=== PATIENT | male | born 1945 | race Caucasian/White ===

== ENCOUNTER 2023-03-09 11:08 | Outpatient (AMB) | payer MEDICARE, SELFPAY ==
--- NOTE | 2023-03-09 11:14 | AM.OFFWIN_ITS ---
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 Note: pt is here for ear blocked and complains about shoulder pain on Right side Patient Tobacco Use Status: Never used Tobacco Allergies morphine Allergy (Mild, Verified 03/09/23 11:16) Hallucinations Do you need a note to return to daycare/school/sports/work: No HPI HPI Comments History of Present Illness Details This is a 77-year-old male history of leukemia, prostate cancer, cerebral aneurysms presenting with decreased hearing to left ear and right shoulder pain, decreased hearing has been going on for the past few weeks progressively worsening and right shoulder pain has been progressively worsening over the past week or 2. Patient reports right shoulder pain is worse with overhead movements, better at rest, no numbness or tingling or inciting injury. No previous issues with right shoulder. Patient denies headache, vision changes, dizziness, weakness, nausea, vomiting, chest pain, shortness of breath, abdominal pain. Physical exam with full range of motion to bilateral shoulders however uncomfortable overhead range of motion to the right shoulder. 2+ radial pulses equal bilateral. No wrist drop. Normal sensation distally. Normal capillary refill less than 2 seconds to bilateral upper extremities. No step-offs or deformities to bilateral shoulders/clavicles. Left ear canal appears to be impacted with cerumen large amount. Normal right ear canal. No pain with manipulation of external ears bilaterally. No mastoid tenderness bilaterally. History and physical exam consistent with left ear cerumen impaction therefore likely reason as to why patient can not hear out of his left ear as good as usual. Unlikely sensorineural hearing loss. Right shoulder pain likely tend initis, sprain or strain, or inflammatory arthritis. I do not suspect atypical presentation of ACS. Plan will irrigate left ear. Will obtain x-rays of right shoulder. Will have him follow up with the orthopedic team. Educated patient on diagnosis and treatment plan, answered all question, patient verbalizes understanding. At this time patient will be discharged home, advised to return with new or worsening symptoms. Educated on worrisome signs and symptoms and when to return. At this time I feel comfortable discharge home. [facility] Social History Patient Tobacco Use Status: Never used Tobacco Review of Systems Const Details: Constitutional : No Weight loss, No Fever, No Chills, No Fatigue, No Malaise ENT/Mouth : No sore throat, No Rhinorrhea, + decreased hearing Eyes: No Eye Pain, No Swelling, No Redness Cardiovascular : No Chest Pain, No SOB, No Dyspnea on Exertion, No Orthopnea, No Edema, No Palpitations Respiratory : No Cough, No Sputum, No Wheezing Gastrointestinal : No Nausea, No Vomiting, No Diarrhea, No Constipation, No abdominal Pain, No Hematochezia, No Melena Genitourinary : No Dysuria, No Urinary Frequency, No Hematuria, Musculoskeletal : + joint pain, No Myalgias, No Joint Swelling Skin : No Skin Lesions, No rash Neuro : No Weakness, No Numbness, No Dizziness, No Headache Psych : No Anxiety/Panic, No Depression All other systems reviewed and are negative All systems reviewed & are unremarkable except as noted in HPI and below Physical Exam Vital Signs: Last Vital Signs Pulse 70 03/09/23 11:19 BP 118/62 03/09/23 11:19 Pulse Ox 97 03/09/23 11:19 Oxygen Delivery Method Room Air 03/09/23 11:19 vss Appearance: Alert.? Oriented X3.? No acute distress.? Head: Normocephalic, atraumatic, no step-offs or deformities Eyes: Pupils equal, round and reactive to light.? ENT: Pharynx normal.? Left-sided ear canal with cerumen impaction. Neck: Normal inspection.? Neck supple.? CVS: Normal heart rate and rhythm.? Pulses normal.? Respiratory: No respiratory distress.? Breath sounds normal.? Abdomen: Soft and nontender.? Skin: Skin warm and dry.? Normal skin color.? Normal skin turgor.? Extremities: No lower extremity edema.? No calf ttp. 5/5 strength to bilateral upper and lower extremities full range of motion to bilateral shoulders however painful range of motion to right shoulder, no step-offs or deformities. Painful range of motion to right shoulder particularly with overhead movements. 2+ radial pulses equal and bilateral. No wrist drop. Normal capillary refill to bilateral upper extremities. Back: No midline tenderness, no C-spine tenderness, full range of motion, no CVA tenderness bilaterally Neuro: Oriented X 3.? No motor deficit.? No sensory deficit. CN 2-12 intact Assessment & Plan Assessment & Plan (1) Right shoulder pain: Code(s): M25.511 - Pain in right shoulder (2) Cerumen impaction: Code(s): H61.20 - Impacted cerumen, unspecified ear Plan Take your medications as prescribed. If you were prescribed antibiotics today, it is important that you take your medication to their entirety, do not skip any doses, do not finish them early. Follow-up with your primary care provider this week. Return to the emergency department with new or worsening symptoms. Such as fevers, chills, chest pain, shortness of breath, nausea, vomiting, dizziness, headache, vision changes, lethargy In case of emergency call 911 Orders: Orders XR shoulder RT min 2V Today M25.511 - Pain in right shoulder Referrals Orthopedics Referral M25.511 - Pain in right shoulder Coding Level of Care Code Est Pt Level 3 (39134) Diagnoses Right shoulder pain M25.511 Cerumen impaction H61.20
[2023-03-09 11:19] VITALS: BP 118/62; PULSE 70; O2SAT 97
== END 2023-03-09 12:30 | disposition home or self-care (01) ==
PROVIDERS: Visit Provider Physician Assistant
DX: M25.511 Pain in right shoulder (principal); H61.22 Impacted cerumen, left ear
CPT/HCPCS: 99213

== ENCOUNTER 2023-03-09 11:57 | Outpatient (REF) | payer MEDICARE, SELFPAY ==
--- NOTE | ~2023-03-09 | XR_ITS ---
EXAMINATION: XR SHOULDER, RIGHT CLINICAL INFORMATION: Right shoulder pain COMPARISON: None available. TECHNIQUE: AP external rotation, Grashey, scapular Y, and axillary views of the right shoulder. FINDINGS: Acromioclavicular joint space narrowing. Mild degenerative changes glenohumeral joint. No fracture or dislocation. Calcification is superolateral right humeral head and acromial tip. Visualized ribs and lung are unremarkable. XR/XR shoulder RT min 2V IMPRESSION: No acute bony pathology. Degenerative type changes. Question right shoulder calcific tendinopathy.
== END 2023-03-09 11:58 | disposition home or self-care (01) ==
LOC: HO.HMGCX 11:57
PROVIDERS: Visit Provider Physician Assistant
DX: M25.511 Pain in right shoulder (principal)
CPT/HCPCS: 73030

== ENCOUNTER 2023-04-22 09:51 | Outpatient (AMB) | payer MEDICARE, SELFPAY ==
--- NOTE | 2023-04-22 09:59 | MHC.OFFVIS ---
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 Patient reports ongoing pain for 3 months. No hx of injury. Pain is more in the anterior aspect of the shoulder per patient. He states that his shoulder tenses up once in a while and it limits his ROM. Having concerns of his is left hand pain. Hx of injection with no relief. 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 The patient reports ongoing pain for 3 months, since 12/2022. He does not recall any known injury. He claims the pain is on the anterior aspect of the shoulder. He states the shoulder tenses up occasionally and has limited ROM. He states he feels like the shoulder is getting stuck. His family member states he has been limited due to chemotherapy. He does not recall any known injury. The patient also reports left hand pain. He denies a history of diabetes mellitus. ON LICENSE OF [facility] Social History Patient Tobacco Use Status: Never used Tobacco Review of Systems Const All systems reviewed & are unremarkable except as noted in HPI and below Physical Exam Vital Signs: BMI result Body Mass Index 31.6 Const General: cooperative and no acute distress Orientation/consciousness: patient oriented x3 Resp Effort & Inspection: normal respiratory effort and able to speak in complete sentences Cardio Peripheral pulses: Peripheral pulses 2+ throughout Skin General skin exam: no rashes or lesions noted Neuro General: patient oriented x3 Extrem Other: Right shoulder: Forward flexion and abduction lacking 20 degrees. Positive cross-body reach. 3/5 strength with empty can. Negative drop arm. NVI. Office Procedures Joint Injection/Drain Joint Injection/Drain Primary Site: right shoulder Prep: site was prepped using aseptic technique, ethochloride spray was applied and injection warnings given Injected: 80 mg of, DepoMedrol, with 8 mL of (2% lido plain ) and in the subcromial space Approach Used: posterolateral Procedure: The patient tolerated the procedure well, but had some pain with the injection and there was some relief with the local anesthesia Coding 34239 - Large joint Procedure code (CPT) selection complete Results Reviewed Results Reviewed: 04/22/23 10:25 Lidocaine HCl 2 % MPF [Xylocaine 2 % MPF] 5 ml .ROUTE .STK-MED ONE methylPREDNISolone acetate [DEPO-MedroL] 80 mg .ROUTE .STK-MED ONE Assessment & Plan Assessment & Plan (1) Painful arc syndrome of right shoulder: Code(s): M75.101 - Unspecified rotator cuff tear or rupture of right shoulder, not specified as traumatic (2) Osteoarthritis of right shoulder: Code(s): M19.011 - Primary osteoarthritis, right shoulder Plan Mr. Mcdermott is a 78-year-old right hand dominant male who presents in the office today with a family member, as a new patient, for an evaluation of right shoulder pain. The patient reports ongoing pain for 3 months, since 12/2022. He does not recall any known injury. He claims the pain is on the anterior aspect of the shoulder. He states the shoulder tenses up occasionally and has limited ROM. He states he feels like the shoulder is getting stuck. His family member states he has been limited due to chemotherapy. He does not recall any known injury. The patient also reports left hand pain. He denies a history of diabetes mellitus. The patient was offered a cortisone injection in the right shoulder with 80 mg of DepoMedrol. The patient was explained the risk, benefits, and alternatives to receiving this injection. After receiving consent for the injection, the patient had the procedure done while in office today. The patient tolerated the procedure well with no complications. In the event the in office cortisone injection does not give relief I will refer him for a cortisone injection under ultrasound. I offered Physical Therapy but they would like to defer at this time. Follow up will be PRN, or sooner if needed. X-rays of the right shoulder, obtained on 03/09/2023, revealed: No acute bony pathology. Degenerative type changes; osteoarthritis Question right shoulder calcific tendinopathy. Patient Instructions: Scribed for Tona Paez PA-C by benita Cantu scribe, on 04/22/2023 at 9:57 am, EST. Coding Level of Care Code New Pt Level 3 (26332) Diagnoses Painful arc syndrome of right shoulder M75.101 Osteoarthritis of right shoulder M19.011 CPT Codes Coding - 39124 Large joint: 04303 - Large joint ([id number])
[2023-04-22 10:05] VITALS: BMI 31.6
== END 2023-04-22 10:48 | disposition home or self-care (01) ==
PROVIDERS: Visit Provider Physician Assistant
DX: M19.011 Primary osteoarthritis, right shoulder (principal); M75.101 Unspecified rotator cuff tear or rupture of right shoulder, not specified as traumatic
CPT/HCPCS: 20610; 99204

== ENCOUNTER → 2023-04-22 09:51 | Outpatient (BNVA) | payer MEDICARE, SELFPAY | PROVIDERS: Visit Provider Physician Assistant | DX: M75.101 Unspecified rotator cuff tear or rupture of right shoulder, not specified as traumatic (principal); M19.011 Primary osteoarthritis, right shoulder | CPT/HCPCS: 20610; 99202; J1040 ==

== ENCOUNTER 2023-12-16 09:11 | Outpatient (REF) | payer MEDICARE, SELFPAY ==
--- NOTE | ~2023-12-16 | XR_ITS ---
EXAMINATION: XR SHOULDER, RIGHT CLINICAL INFORMATION: Pain and unspecified shoulder. COMPARISON: 03/09/2023 TECHNIQUE: AP external rotation, Grashey, scapular Y, and axillary views of the right shoulder. FINDINGS: Redemonstration of moderate narrowing of the acromioclavicular joint. Glenohumeral alignment preserved with mild degenerative changes. Small calcifications redemonstrated inferior to the acromion and lateral to the humeral head. Degenerative changes in the imaged upper thoracic spine. XR/XR shoulder RT min 2V IMPRESSION: Degenerative changes as detailed above. 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
== END 2023-12-16 09:12 | disposition home or self-care (01) ==
LOC: HO.HOSX 09:11
PROVIDERS: Visit Provider Physician Assistant
DX: M19.011 Primary osteoarthritis, right shoulder (principal)
CPT/HCPCS: 20610; 73030; 99212; J1010

== ENCOUNTER 2023-12-16 13:06 | Outpatient (AMB) | payer MEDICARE, SELFPAY ==
--- NOTE | 2023-12-16 13:28 | MHC.OFFVIS ---
Vital Signs 12/16/23 13:43 Height 5 ft 6 in Weight 196 lb BMI 31.6 Intake Visit Reasons: OV-pain in right shoulder/pain getting worse Intake Note: Vik is a 78 year old right hand dominant male who present today with his for a follow up of his right shoulder pain, last injection 04/22/23. Patient reports last injection provided with him some relief for about 2 months. Currently limited on his ROM. He would like to discuss repeating a cortisone injection. Allergies morphine Allergy (Mild, Verified 12/16/23 13:42) Hallucinations HPI HPI OV-pain in right shoulder/pain getting worse: Details: 78-year-old right hand dominant male who presents in the office today for a follow up of right shoulder osteoarthritis. I last saw the patient in the office on 04/22/2023 when he was given a cortisone injection. While in the office today the patient reports the last injection gave him some relief for about 2 months. He reports limited ROM. He would like to discuss a cortisone injection versus a genicular injection. Patient presents in the office with his . [facility] Social History Patient Tobacco Use Status: Never used Tobacco Review of Systems Const All systems reviewed & are unremarkable except as noted in HPI and below Physical Exam Vital Signs: BMI result Body Mass Index 31.6 Const General: cooperative, healthy appearing and no acute distress Resp Effort & Inspection: normal respiratory effort and able to speak in complete sentences Cardio Rate: regular rate Peripheral pulses: Peripheral pulses 2+ throughout GI Palpation (GI): Soft to palpation Skin Lesions: no lesions Rashes: no rashes Extrem Other: Right shoulder: Forward flexion and abduction lacking 20 degrees. Positive cross-body reach. 3/5 strength with empty can. Negative drop arm. NVI. Office Procedures Joint Injection/Drain Joint Injection/Drain Primary Site: right shoulder Prep: site was prepped using aseptic technique, ethochloride spray was applied and injection warnings given Injected: 80 mg of, DepoMedrol, with 8 mL of (2% plain lido ) and in the subcromial space Approach Used: posterolateral Procedure: The patient tolerated the procedure well, but had some pain with the injection and there was some relief with the local anesthesia Coding 22521 - Large joint Procedure code (CPT) selection complete Assessment & Plan Assessment & Plan (1) Painful arc syndrome of right shoulder: Code(s): M75.101 - Unspecified rotator cuff tear or rupture of right shoulder, not specified as traumatic Category: Medical (2) Osteoarthritis of right shoulder: Code(s): M19.011 - Primary osteoarthritis, right shoulder Category: Medical Qualifiers: Osteoarthritis type: unspecified Qualified Code(s): M19.011 - Primary osteoarthritis, right shoulder Plan Mr. Mcdermott is a 78-year-old right hand dominant male who presents in the office today for a follow up of right shoulder osteoarthritis. I last saw the patient in the office on 04/22/2023 when he was given a cortisone injection. While in the office today the patient reports the last injection gave him some relief for about 2 months. He reports limited ROM. He would like to discuss a cortisone injection versus a genicular injection. Patient presents in the office with his . The patient was offered a cortisone injection in the right shoulder with 80 mg of DepoMedrol. The patient was explained the risk, benefits, and alternatives to receiving this injection. After receiving consent for the injection, the patient had the procedure done while in the office today. The patient tolerated the procedure well with no complications. Follow up will be PRN, or sooner if needed. X-rays of the right shoulder which were obtained while in the office today and were reviewed by me, Tona Paez PA-C, revealed osteoarthritis. Orders: Orders XR shoulder RT min 2V Today M25.519 - Pain in unspecified shoulder Patient Instructions: Scribed by Pat Modi medical videographer, for Tona Paez PA-C on 12/16/2023 at 1:17 pm, EST.
[2023-12-16 13:43] VITALS: BMI 31.6
== END 2023-12-16 13:47 | disposition home or self-care (01) ==
PROVIDERS: PCP Internal Medicine; Visit Provider Physician Assistant
DX: M75.101 Unspecified rotator cuff tear or rupture of right shoulder, not specified as traumatic (principal); M19.011 Primary osteoarthritis, right shoulder
CPT/HCPCS: 20610; 99213

== ENCOUNTER 2024-07-15 08:56 | Emergency (ER) | payer MEDICARE, SELFPAY ==
--- NOTE | ~2024-07-15 | CT_ITS ---
EXAMINATION: CT LUMBAR SPINE WITHOUT CONTRAST CLINICAL INFORMATION: Pain for 2 weeks. Prostate cancer. COMPARISON: None available. TECHNIQUE: Contiguous axial CT images of the lumbar spine were obtained without contrast. Sagittal and coronal reformats were provided and reviewed. This CT examination was performed using dose optimization techniques as appropriate, variously including the following: *Automated exposure control *Adjustment of mA and/or kV according to patient size (this includes techniques or standardized protocols for targeted exams where dose is matched to indication/reason for exam; i.e. extremities or head) *Use of iterative reconstruction technique DLP; 591 mGy-cm FINDINGS: Normal vertebral body alignment. The lumbar lordosis is maintained. No acute fracture or subluxation. No loss of vertebral body height. Mild multilevel loss of intervertebral disc height with prominent bridging endplate osteophytes. No concerning lytic or blastic osseous lesion. Multilevel bilateral facet arthropathy. Sigmoid diverticulosis without evidence of acute diverticulitis. The remaining visualized intra-abdominal and pelvic structures are grossly unremarkable. No soft tissue mass or fluid collection. Diffuse paraspinal muscle atrophy. Evaluation of disc bulges and stenosis significantly limited on CT examination. There appear to be small broad-based disc bulges at L4-L5 and L5-S1 with bilateral facet arthropathy and thickening of the ligamentum flavum causing tmld-ao-sahnsbnf central canal and bilateral neural foraminal stenosis. CT/CT lumbar spine wo IV con IMPRESSION: 1. No acute fracture or subluxation. 2. Multilevel degenerative disc disease with prominent bridging endplate osteophytes. 3. Evaluation of disc bulges and stenosis significantly limited on CT examination. There appear to be small broad-based disc bulges at L4-L5 and L5-S1 with bilateral facet arthropathy and thickening of the ligamentum flavum causing xpdt-ip-xpxavpjj central canal and bilateral neural foraminal stenosis. Electronically signed by: Jorgito Barroso MD 07/15/2024 12:29 PM [facility]
[2024-07-15 09:03] VITALS: BP 140/61; PULSE 55; RESP 18; TEMP 36.6; O2SAT 98; BMI 31.5
--- NOTE | 2024-07-15 09:50 | ED.GENADULT ---
HPI - General Adult General Chief complaint: Back Pain/Injury Stated complaint: low back pain Time Seen by Provider: 07/15/24 09:50 Source: patient and family Mode of arrival: wheelchair Limitations: physical limitation History of Present Illness ED Provider: Odalys HPI narrative: Patient is an 79-year-old male with history of brain aneurysm, HTN, seizure disorder, prostate cancer in remission, bladder stimulator, spinal stenosis presenting to the emergency department with complaint of low back pain for the past 2 weeks. Denies fall or other trauma. Denies recent strenuous activity. States pain has progressively worsened and now seems worse on right side. Denies any radiation of pain to lower extremities. Denies saddle anesthesia or bowel or bladder incontinence or retention. Denies new urinary symptoms, but reports baseline frequency due to prostate CA. Denies fevers. Saw PCP this week, had lumbar x-ray done through [facility], not notified of results. Started on Celebrex by PCP without improvement. Has also tried heat as recommended by PCP as well as Salon Pas cream without relief. states patient screams in pain with standing/movement and over past few days has been unable to toilet and stand without assistance. He describes it as a sharp, stabbing pain. MD complaint: back pain Onset (ago): week(s) Location: back Radiation: non-radiation Severity: severe Quality: stabbing Pain Consistency: colicky Relieving factors: rest Exacerbating factors: movement Associated symptoms: denies other symptoms Treatments prior to arrival: NSAID, heat therapy and other Related Data Home Medications ?Medication ?Instructions ?Recorded ?Confirmed aspirin 81 mg tablet,delayed 81 mg PO DAILY 03/09/23 release atenolol 50 mg tablet 50 mg PO BID 03/09/23 calcium carbonate (Calcium 600) 600 mg PO DAILY 03/09/23 famotidine 20 mg tablet (Pepcid) 20 mg PO BEDTIME 03/09/23 lamotrigine 100 mg tablet 100 mg PO DAILY 03/09/23 nifedipine 30 mg tablet,extended 30 mg PO DAILY 03/09/23 release 24 hr rosuvastatin 10 mg tablet 10 mg PO DAILY 03/09/23 spironolactone 25 mg tablet 25 mg PO DAILY 03/09/23 valsartan 320 mg tablet 320 mg PO DAILY 03/09/23 Previous Rx's ?Medication ?Instructions ?Recorded ugsxrzpq-hjoovamuh-xfvopzrqq 3.5 4 drp otic (ears) Q8H #10 mL 03/17/23 mg-10,000 unit/mL-1 % ear drops,susp lidocaine 4 % topical patch 1 patch topical DAILY PRN pain #15 07/15/24 ea prednisone 20 mg tablet 20 mg PO DAILY #5 tabs 07/15/24 Allergies Allergy/AdvReac Type Severity Reaction Status Date / Time morphine Allergy Mild Hallucinati Verified 07/15/24 09:14 ons Review of Systems Review of Systems: As per HPI. Yes all other systems are reviewed and are negative Constitutional: Constitutional: Reports as per HPI [facility] Social History Social History Patient Tobacco Use Status: Never used Tobacco Advance Directives: No Advance Directives Information Provided: Yes Do you have a plan to hurt others: No Plan Physical Exam ED Vital Signs: Vital Signs - 24 hr 07/15/24 09:03 Temperature 98 F Pulse Rate 55 Respiratory Rate 18 Blood Pressure 140/61 H Pulse Oximetry 98 Oxygen Delivery Method Room Air BMI result Body Mass Index 31.5 Vital signs have been reviewed and appear to be correct. Blood pressure normal. Heart rate normal. Respiratory rate normal. Temperature normal. Oxygen saturation normal. Const General: cooperative, healthy appearing and no acute distress Orientation/consciousness: oriented to person, oriented to place, oriented to time and patient oriented x3 Limitations: no limitations [facility] Head: Yes normocephalic and Yes atraumatic Ears: external ears normal General nose exam: Normal external nose present Face and sinus: Yes face symmetric Mouth: oropharynx normal and moist mucous membranes Throat: Yes uvula midline Eyes Pupils: Equal, round and reactive pupils present Neck Neck: Yes normal visual inspection and Yes supple Resp Effort & Inspection: normal respiratory effort and able to speak in complete sentences Auscultation: clear to auscultation bilaterally Cardio Rate: regular rate Rhythm: regular rhythm Heart sounds: S1 normal heart sound present and S2 normal heart sound present GI Palpation (GI): Soft to palpation and nontender Auscultation: normoactive bowel sounds General: Yes no CVA tenderness Back/Spine/Pelvis Back: no CVA tenderness Thoracic/Lumbar Spine: straight leg raise negative bilaterally, pain with thoraco-lumbar ROM, paraspinal muscle tenderness bilaterally in the mid lumbar, thoraco-lumbar ROM limited (all directions due to pain), No thoracic spinal tenderness and No lumbar spinal tenderness Skin General skin exam: elasticity normal and turgor normal Neuro General: oriented to person, oriented to place, oriented to time, patient oriented x3, moves all extremities, no focal motor deficits and CN's II-XI intact bilaterally Cranial nerves: Yes Equal, round and reactive pupils present Cognition (Neuro): normal cognition Extrem General: Yes full ROM, Yes no pedal edema and Yes no calf tenderness Psych Mental Status: mental status grossly normal Affect: normal affect Thought process: Normal thought process present Medical Decision Making Medical Decision Making [facility] Narrative: Patient is an 79-year-old male with history of brain aneurysm, HTN, seizure disorder, prostate cancer in remission, bladder stimulator, spinal stenosis presenting to the emergency department with complaint of low back pain for the past 2 weeks. On exam patient is awake, A+Ox3, VS WNL, afebrile, normal neurological exam without focal deficits, physical exam findings as above. Given reported symptoms and physical exam findings, initial differential includes UTI, lumbar strain, lumbar radiculopathy, degenerative disc disease, disc herniation, spinal stenosis, spondylosis. Less likely vertebral fracture. No red flag findings to suspect malignancy/mass, SEA, cauda equina/cord compression. However, given patient's history of prostate CA, will obtain lumbar CT. Urinalysis notable for no evidence of infection. CT notable for bulging discs at L4/L5 and L5/S1. My interpretation is in agreement with the radiologist's interpretation. X-ray obtained through [facility] reveiwed, notable for slight progression of arthritic changes. Results discussed with patient and and all questions answered. Will send prescription for prednisone and lidocaine patches. Advised patient to follow-up with PCP as well as Dr. Menon in the morning. Return precautions discussed. Patient and verbalized understanding of and agreement with plan. Differential Diagnosis Differential Diagnoses: The differential diagnosis associated with the presentation includes As per [facility] Admission/Observation Consideration of admission/observation: Escalation of care including admission/observation considered Patient would have been admitted to the hospital had their work up had any findings where hospital admission was appropriate and their clinical presentation warranted hospital admission. Lab Data [facility] Lab Attestation statement: I reviewed the patient's lab results. as per [facility] Labs: Lab Results 11/17/24 Range/Units 10:34 Urine Color Yellow Urine Appearance Clear Urine pH 5.5 (5.0-9.0) Ur Specific [place] 1.015 (1.005-1.025) Urine Protein Negative (Neg-Trace) mg/dL Urine Glucose (UA) Negative (Negative) mg/dL Urine Ketones Negative (Negative) mg/dL Urine Blood Negative (Negative) Urine Nitrite Negative (Negative) Ur Leukocyte Esterase Negative (Negative) Independent Interpretation I performed an independent interpretation of an: CT Scan Interpretation: CT lumbar spine shows bulging discs at L4/5 and L5/S1 Radiology Impression Discussion of test interpretation with radiology: I have reviewed the radiologist's reading. Radiologist Impression: CT/CT lumbar spine wo IV con IMPRESSION: 1. No acute fracture or subluxation. 2. Multilevel degenerative disc disease with prominent bridging endplate osteophytes. 3. Evaluation of disc bulges and stenosis significantly limited on CT examination. There appear to be small broad-based disc bulges at L4-L5 and L5-S1 with bilateral facet arthropathy and thickening of the ligamentum flavum causing lkpd-rb-lwopfaou central canal and bilateral neural foraminal stenosis. Independent Historian Clinical information obtained from an independent historian. History obtained from or confirmed by: Spouse External Record Review External record reviewed: Inpatient record, Office record and Outpatient record Prescription Management I considered prescription management with: Pain Medication Discharge Plan Discharge Clinical Impression: Bulging lumbar disc, Lumbar radiculopathy Patient Disposition: Home, Self-Care Instructions: Lumbar Radiculopathy (ED), Degenerative Disc Disease (ED) Additional Instructions: You were evaluated in the emergency department today for back pain. Your CT scan showed bulging discs at L4/L5 and L5/S1. You are being prescribed a short course of steroids to decrease inflammation. You are also being prescribed topical lidocaine patches which you can apply for up to 12 hours in a 24 hour period. We recommended that you use ibuprofen or Tylenol per package directions every 6 hours as needed for pain. If necessary, you can alternate these medications so that you take one medication every 3 hours. For instance, at noon take ibuprofen, then at 3:00 p.m. take Tylenol, then at 6:00 p.m. take ibuprofen. Do not take the ibuprofen and Celebrex at the same time, use one or the other. Please schedule an appointment for follow-up with your primary care physician tomorrow and follow up with Dr. Menon as well. Return to the emergency department if you experience worsening back pain, difficulty walking, fevers, numbness, tingling, incontinence, groin numbness or tingling, or any other concerning symptoms. Prescriptions: New lidocaine 4 % adhesive patch,medicated 1 patch topical DAILY PRN (Reason: pain) Qty: 15 0RF prednisone 20 mg tablet 20 mg PO DAILY Qty: 5 0RF No Action kueygaqz-vkqodukkw-WM 3.5-10,000-1 mg/mL-unit/mL-% drops,suspension 4 drp otic (ears) Q8H Qty: 10 0RF atenolol 50 mg tablet 50 mg PO BID lamotrigine 100 mg tablet 100 mg PO DAILY valsartan 320 mg tablet 320 mg PO DAILY nifedipine 30 mg tablet extended release 24hr 30 mg PO DAILY rosuvastatin 10 mg tablet 10 mg PO DAILY spironolactone 25 mg tablet 25 mg PO DAILY famotidine [Pepcid] 20 mg tablet 20 mg PO BEDTIME aspirin 81 mg tablet,delayed release (DR/EC) 81 mg PO DAILY calcium carbonate [Calcium 600] 600 mg calcium (1,500 mg) tablet 600 mg PO DAILY Referrals: Cristopher Menon MD [Physician] - Sin Peace MD, PhD [Physician] - Print Language: Bengali
[2024-07-15 10:42] LABS: Appearance Urine Clear; Color Urine Yellow; Glucose Urine UA Negative (Negative); Leukocyte Esterase Urine Negative (Negative); Nitrite Urine Negative (Negative); PH 5.5 (5.0-9.0); Specific Gravity - Urine 1.015 (1.005-1.025); Urine Blood Negative (Negative); Urine Ketones Negative (Negative); Urine Protein Negative (Neg-Trace)
[2024-07-15 12:54] VITALS: BP 140/61; PULSE 55; RESP 18; TEMP 36.6; O2SAT 98
== END 2024-07-15 12:55 | disposition home or self-care (01) ==
PROVIDERS: Registered Nurse Emergency; Emergency Provider Emergency Medicine; PCP Internal Medicine
DX: M54.16 Radiculopathy, lumbar region (principal); I10 Essential (primary) hypertension; Z79.899 Other long term (current) drug therapy
CPT/HCPCS: 72131; 81003; 99282; 99284

== ENCOUNTER 2024-07-18 12:24 | Outpatient (AMB) | payer MEDICARE, SELFPAY ==
--- NOTE | 2024-07-18 12:54 | A.SPINEOV_ITS ---
Intake Visit Reasons: ED f/u Intake Note: Mr. Mcdermott is here today in f/u of ED visit due to low back pain. Charge Entry Required: No Allergies morphine Allergy (Mild, Verified 07/15/24 09:14) Hallucinations Assessment & Plan Assessment & Plan (1) Spinal stenosis: Code(s): M48.00 - Spinal stenosis, site unspecified Category: Medical Plan Vik is a pleasant 79 year old male who comes in today as a emergency department follow up from the ED here at [facility]. He presents with a CC of low back pain and difficulty with ambulation. He states that his back pain began abruptly roughly 2 weeks ago when he awoke with significant back pain in the morning. He has been walking in a hunched over/flexed position since. He denies any significant radicular symptoms. He denies any numbness or tingling in his lower extremities. He does state that he is able to walk for about an hour at a time but his lower extremities become tired and painful. He reports a pertinent neurosurgical history of lumbar decompression [place] [address] Hernandez, and a brain aneurysm repair in [address] Hernandez. He reports that his pain is exacerbating by rising from a lying position. Standing still helps to relieve his pain. He has tried Aspercreme, lidocaine patches, prednisone, C elebrex, Advil, hot packs, Tylenol all in an effort to help mitigate his symptoms. These have only provided him with modest relief of pain. Thus far he has not attempted physical therapy or cortisone injections. PMH: History of lumbar decompression 2000, history of brain aneurysm repair 2000, history of leukemia in 2007, history of prostate cancer in 2019, high blood pressure, bladder stimulator in place for bladder dysfunction, unspecified seizure disorder, hyperlipidemia. Social hx: The patient does not smoke, reports no substance use. Medications: Aspirin, atenolol, calcium carbonate, famotidine, gabapentin, lamotrigine, lidocaine, nifedipine, prednisone, rosuvastatin, spironolactone, valsartan. Allergies: Morphine. Physical exam: The patient has 5/5 strength in his upper and lower extremities. His reflexes are 2+ intact. He ambulates without an antalgic or spastic gait. (-) bilateral straight leg raise, (-) Sullivan's, (-) clonus. Imaging review: CT scan of the lumbar spine completed here at [facility] shows disc bulging at L4-5, L5-S1 causing some degree of central canal/bilateral foraminal stenosis at these levels. This would be better evaluated by an MRI. Impression: Vik is a pleasant 79-year-old male who comes in today with a chief complaint of low back pain and difficulties with ambulation. His history and physical examination are most consistent with lumbar stenosis with neurogenic claudication. I believe this is likely a chronic issue that only recently became symptomatic. I would like to send the patient for a course of physical therapy to see if that can help strengthen his core/back. The insurance company would also want this to be done prior to ordering an MRI. After he completes physical therapy is welcome to follow up with us again for a subsequent in office visit. At that time if his symptoms persist we may order a lumbar MRI to evaluate for neurogenic impingement which is likely causing his symptoms. Thank you for allowing us to care for your patient. The total time spent with this visit with this patient was 45 minutes reviewing history, physical exam, CT imaging review, and implementation of treatment plan or further diagnostic testing Ivan Peace MD,PhD [facility] Orders: Orders PT Evaluation and Treatment 07/18/24 M48.00 - Spinal stenosis, site unspecified Medications: New gabapentin 300 mg PO TID PRN 30 caps 1RF nerve pain Coding Level of Care Code New Pt Level 4 (47538) Diagnoses Spinal stenosis M48.00
== END 2024-07-18 13:35 | disposition home or self-care (01) ==
PROVIDERS: PCP Internal Medicine; Visit Provider Physician Assistant
DX: M48.00 Spinal stenosis, site unspecified (principal)
CPT/HCPCS: 99204

== ENCOUNTER → 2024-07-18 12:24 | Outpatient (BNVA) | payer MEDICARE, SELFPAY | PROVIDERS: PCP Internal Medicine; Visit Provider Physician Assistant | DX: M48.062 Spinal stenosis, lumbar region with neurogenic claudication (principal) | CPT/HCPCS: 99202 ==

== ENCOUNTER 2024-09-22 13:07 | Outpatient (REF) | payer MEDICARE, SELFPAY ==
--- NOTE | ~2024-09-22 | XR_ITS ---
CLINICAL HISTORY: pain in left knee 3 view left knee Comparison: None Findings: Possible posterior intra-articular body. No acute fracture. No dislocation. Jkrp-yw-lowufjxn arthritic change. Small knee effusion. No radiopaque foreign body. IMPRESSION: 1. Small knee effusion. 2. Possible posterior intra-articular body. This document has been electronically signed by: Jadyn Flowers MD on 09/22/2024 13:46:36
--- OUTSIDE RECORDS SUMMARY | 2024-09-22 13:10 | XMS_ITS | Clinical Summary ---
Author Organization [facility] Address [address] [place] [address] Care Team Providers Care Exhibitions And Collections Manager Name Role Phone Kelby Arnold MD Primary Care Provider [phone] Allergies Active Allergy Reactions Criticality Noted Date Comments Morphine 05/18/2017 Medications Medication Sig Dispensed Refills Start Date End Date Status irbesartan (AVAPRO) 300 MG tablet Take 300 mg by mouth every night at bedtime. 0 Active lamoTRIgine (LAMICTAL) 100 MG tablet Take 100 mg by mouth 2 (two) times a day. 0 Active aspirin 81 MG chewable tabletIndications:Stopp ed aspirin for procedure Chew 81 mg by mouth daily. 0 Active Cobalamine Combinations (FOLTRATE PO) Take by mouth. 0 Active atenolol (TENORMIN) tablet 100 mg Take 100 mg by mouth daily. 0 Active NIFEdipine (PROCARDIA XL) 30 MG 24 hr tablet Take 30 mg by mouth daily. 0 Active ranitidine (ZANTAC) 150 MG tablet Take 150 mg by mouth 2 (two) times a day. 0 Active spironolactone (ALDACTONE) tablet 25 mg Take 25 mg by mouth daily. 0 Active cholecalciferol (VITAMIN D3) 1000 UNITS tablet Take 2,000 Units by mouth daily. 0 Active LORazepam (ATIVAN) 1 MG tablet Take 1 mg by mouth every 6 (six) hours as needed. 0 Active pravastatin (PRAVACHOL) tablet 20 mg TAKE 1 TABLET BY MOUTH AT BEDTIME 2 11/01/2017 Active Active Problems Problem Noted Date Diagnosed Date Acute promyelocytic leukemia in remission 2016 Social History Tobacco Use Types Packs/Day Years Used Date Smoking Tobacco: Former Smokeless Tobacco: Never Alcohol Use Standard Drinks/Week Comments Yes 0 (1 standard drink = 0.6 oz pur e alcohol) Sex and Gender Information Value Date Recorded Sex Assigned at Not on file Gender Identity Not on file Sexual Orientation Not on file Last Filed Vital Signs Vital Sign Reading Time Taken Comments Blood Pressure 160/60 05/29/2018 12:57 PM EDT Pulse 56 05/29/2018 12:57 PM EDT Temperature 36.4 ??C (97.5 ??F) 05/29/2018 12:57 PM E DT Respiratory Rate - - Oxygen Saturation - - Inhaled Oxygen Concentration - - Weight 90.7 kg (200 lb) 05/29/2018 12:57 PM EDT Height 165.1 cm (5' 5 ) 05/29/2018 12:57 PM EDT Body Mass Index 33.28 05/29/2018 12:57 PM EDT Plan of Treatment Health Maintenance Due Date Last Done Comments COVID-19 Vaccine (#1) 1950 Pneumococcal Vaccine (1 of 2 - PCV) 1950 Depression Screening 1956 Preventative Health Evaluation 1962 DTap / Tdap / Td (1 - Tdap) 1963 Shingrix-Zoster Vaccine (1 of 2) 1963 Fall Risk Assessment 2009 RSV Adult > 60+ Yrs or Pregn ant (1 - 1-dose 75+ series) 2019 Influenza Vaccine (#1) 2024 Hepatitis B Vaccines Aged Out No long er eligible based on patient's age to complete this topic RSV Ped < 20 months Aged Out No longe r eligible based on patient's age to complete this topic Care Teams Exhibitions And Collections Manager Relationship Specialty Start Date End Date Kelby Arnold MD [address] [place] [id number] PCP - General Internal Medicine 05/10/17
--- OUTSIDE RECORDS SUMMARY | 2024-09-22 13:10 | XMS_ITS | Clinical Summary ---
Author Organization [facility] Address [address] [place] [phone] Phone Care Team Providers Care Human Capital Consultant Name Role Phone Kelby Arnold MD Primary Care Provider [phone] Allergies Active Allergy Reactions Criticality Noted Date Comments Morphine 05/18/2017 Medications Medication Sig Dispensed Refills Start Date End Date Status atenoloL (TENORMIN) 100 mg tablet 1 tab bid Active irbesartan (AVAPRO) 300 mg tablet 1 TABLET DAILY Active raNITIdine (ZANTAC) 150 mg tablet 1 po bid Active zolpidem (AMBIEN) 10 mg tablet 1 TABLET AT BEDTIME NEEDED Active aspirin 81 mg EC tablet 1 TABLET DAILY Active hydrALAZINE (APRESOLINE) 10 mg tablet 1 tab bid Active terazosin (HYTRIN) 10 mg capsule 1 CAPSULE DAILY Active lamoTRIgine (LaMICtal) 200 mg tablet 1 TABLET TWICE DAILY Acti ve escitalopram (LEXAPRO) 10 mg tablet 1 tab daily Active amLODIPine (NORVASC) 10 mg tablet 1 TABLET DAILY Active potassium chloride (KLOR-CON M20) 20 mEq CR tablet 1 TABLET TWICE DAILY Tablet may be swallowed whole (do not crush/chew/suck on) OR broken in half and each half swallowed separately OR dissolved (whole tablet) in ~4 ounces of water (allow ~2 minutes to dissolve, stir well and administer immediately). Active Social History Tobacco Use Types Packs/Day Years Used Date Smoking Tobacco: Never Assessed Sex and Gender Information Value Date Recorded Sex Assigned at Not on file Gender Identity Not on file Sexual Orientation Not on file Plan of Treatment Upcoming Encounters Date Type Department Care Team ([facility] Contact Info) Description 09/26/2024 9:20 AM EST Office Visit Gastroenterology - [address] [place] [phone] Marlena Mayer, LICENSED MENTAL HEALTH PROFESSIONAL [address] [id number] Health Maintenance Due Date Last Done Comments COVID-19 Vaccine (#1) 1950 Pneumococcal Vaccine: 65+ Ye ars (1 of 2 - PCV) 1950 DTaP,Tdap,and Td Vaccines (1 - Tdap) 1963 Zoster Vaccines (1 of 2) 1963 RSV Immunization Patients 60 + Years Old (1 - 1-dose 75+ series) 2019 Influenza Vaccine (#1) 2024 Cholesterol Screening (Lipid Panel) 09/04/2024 Depression Screening 09/04/2024 Falls Risk Assessment 09/04/2024 Medicare Annual Wellness Visit 09/04/2024 Social Influencers of Health Screening 09/04/2024 HIB Vaccines Aged Out No longer eligi ble based on patient's age to complete this topic HPV Vaccines Aged Out No longer eligi ble based on patient's age to complete this topic Hepatitis A Vaccines Aged Out No long er eligible based on patient's age to complete this topic Hepatitis B Vaccines Aged Out No long er eligible based on patient's age to complete this topic IPV Vaccines Aged Out No longer eligi ble based on patient's age to complete this topic MMR Vaccines Aged Out No longer eligi ble based on patient's age to complete this topic Meningococcal ACWY Vaccine Aged Out N o longer eligible based on patient's age to complete this topic RSV Immunization Patients Un rohit 20 months Aged Out No longer eligible b ased on patient's age to complete this topic Varicella Vaccines Aged Out No longer eligible based on patient's age to complete this topic Care Teams Human Capital Consultant Relationship Specialty Start Date End Date Kelby Arnold MD [address] [place] [phone] PCP - General Internal Medicine 05/10/17
== END 2024-09-22 13:08 | disposition home or self-care (01) ==
LOC: HO.HMGCX 13:07
PROVIDERS: Referring Provider Orthopaedic Surgery; Visit Provider Nurse Practitioner Family
DX: M25.562 Pain in left knee (principal); M25.462 Effusion, left knee; M13.862 Other specified arthritis, left knee
CPT/HCPCS: 73564; 99212

== ENCOUNTER → 2024-09-22 13:12 | Outpatient (BNV) | payer MEDICARE, SELFPAY | PROVIDERS: Referring Provider Orthopaedic Surgery; Visit Provider Radiology Diagnostic Radiology | DX: M25.462 Effusion, left knee (principal) | CPT/HCPCS: 73564 ==

== ENCOUNTER 2024-10-09 08:40 | Emergency (ER) | payer MEDICARE, SELFPAY ==
--- NOTE | ~2024-10-09 | XR_ITS ---
EXAMINATION: XR KNEE, LEFT CLINICAL INFORMATION: knee pain COMPARISON: 09/22/2024. TECHNIQUE: Three views of the left knee. FINDINGS: Normal bone mineralization. No fracture, dislocation, or malalignment. No focal bone lesion. 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 Tricompartmental arthritis, most significant in the patellofemoral compartment. Spurring of the tibial spines. Mild subchondral bone plate irregularity of the medial weightbearing femoral condyle. This is likely degenerative. Small suprapatellar joint effusion. Vascular calcifications in the soft tissues. XR/XR knee LT 3V IMPRESSION: 1. No acute bony abnormalities. Stable examination. 2. 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 3. Small joint effusion. Electronically signed by: Ramone Head MD 10/09/2024 09:44 AM JAKI
[2024-10-09 08:54] VITALS: BP 141/50; PULSE 56; RESP 16; TEMP 36.1; O2SAT 99
--- NOTE | 2024-10-09 09:52 | PC.NURSE ---
ortho sent in for knee xray. xray was obtained in waiting room, after xray was obtained patient left to go to his ortho appointment.
== END 2024-10-09 09:53 | disposition left against medical advice (07) ==
PROVIDERS: Emergency Provider Emergency Medicine; PCP Internal Medicine
DX: M25.462 Effusion, left knee (principal); M25.562 Pain in left knee
CPT/HCPCS: 20610; 73562; 99212; 99281; J1010; J2003

== ENCOUNTER → 2024-10-09 09:15 | Outpatient (BNV) | payer MEDICARE, SELFPAY | PROVIDERS: Emergency Provider Emergency Medicine; PCP Internal Medicine; Visit Provider Radiology Diagnostic Radiology | DX: M25.462 Effusion, left knee (principal) | CPT/HCPCS: 73562 ==

== ENCOUNTER 2024-10-09 09:32 | Outpatient (AMB) | payer MEDICARE, SELFPAY ==
--- NOTE | 2024-10-09 09:42 | MHC.OFFVIS ---
Vital Signs 10/09/24 09:53 Height 5 ft 5 in Weight 180 lb BMI 30.0 Handedness Right Intake Visit Reasons: New prob- Left knee swelling/pain Intake Note: Vik is a 79 year old male whop resents today with his for a evaluation of his left knee pain. Patient reports ongoing pain for a couple weeks with no history of an injury. He mentions that his pain is on the medial and lateral aspect of the knee. Patient notices that his pain is worse when he is walking, standing for more that 20 min and using the stairs. He has tried and failed Lidocaine patches, Advil and Tylenol. Allergies morphine Allergy (Mild, Verified 10/09/24 09:52) Hallucinations HPI HPI New prob- Left knee swelling/pain: Details: Mr. Mcdermott is an 79-year-old male who presents to the office today accompanied by his for a evaluation of left knee pain. Patient reports ongoing pain for a couple weeks with no history of an injury. He mentions that his pain is on the medial and lateral aspect of the knee. He did notice that there was an increase in swelling but that has subsided. Patient notices that his pain is worse when he is walking, standing for more that 20 min and using the stairs. He has tried and failed Lidocaine patches, Advil and Tylenol. [facility] Social History (Updated 10/09/24 @ 09:53 by Will Carias) Patient Tobacco Use Status: Never used Tobacco Advance Directives: No Advance Directives Information Provided: No Do you have a plan to hurt others: No Plan Current occupational status: disabled Review of Systems Const All systems reviewed & are unremarkable except as noted in HPI and below Physical Exam Vital Signs: BMI result Body Mass Index 30.0 Const General: cooperative, healthy appearing and no acute distress Resp Effort & Inspection: normal respiratory effort and able to speak in complete sentences Cardio Rate: regular rate Peripheral pulses: Peripheral pulses 2+ throughout Skin Lesions: no lesions Rashes: no rashes Extrem Other: Left knee no ecchymosis or erythema. Mild effusion. Range of motion 0-110. Tenderness to palpation both medial and lateral joint lines. NVI. Office Procedures AMB Joint Injection/Aspiration Joint Injection/Aspiration Primary Site: left knee Prep: site was prepped using aseptic technique, ethochloride spray was applied and injection warnings given Injected: 80 mg of, DepoMedrol, with 8 mL of (2% plain lidocaine) and in the joint Approach Used: anterolateral Procedure: The patient tolerated the procedure well, but had some pain with the injection and there was some relief with the local anesthesia Coding 04322 - Large joint Procedure code (CPT) selection complete Assessment & Plan Assessment & Plan (1) Osteoarthritis of left knee: Code(s): M17.12 - Unilateral primary osteoarthritis, left knee Category: Medical Plan Mr. Mcdermott is an 79-year-old male who presents to the office today accompanied by his for a evaluation of left knee pain. Patient reports ongoing pain for a couple weeks with no history of an injury. He mentions that his pain is on the medial and lateral aspect of the knee. He did notice that there was an increase in swelling but that has subsided. Patient notices that his pain is worse when he is walking, standing for more that 20 min and using the stairs. He has tried and failed Lidocaine patches, Advil and Tylenol. While in the office today we discussed the role of cortisone injection to the left knee. The patient was offered a cortisone injection in the left knee with 80 mg of DepoMedrol. The patient was explained the risks, benefits, and alternatives to receiving this injection. After receiving consent for the injection, the patient had the procedure done while in the office today. The patient tolerated the procedure well with no complications. Follow-up will be p.r.n., or sooner if needed. X-rays of the left knee which were obtained at the hospital today and were reviewed by me, Tona Paez PA-C, revealed left knee osteoarthritis. Medications: New celecoxib (Celebrex) 200 mg PO BID 60 caps 0RF 30 days Coding Level of Care Code Est Pt Level 3 (93393) Diagnoses Osteoarthritis of left knee M17.12 CPT Codes Coding - Large joint: 58977 - Large joint ([id number])
--- OUTSIDE RECORDS SUMMARY | 2024-10-09 10:38 | XMS_ITS | Clinical Summary ---
Author Organization [facility] Address [address] [place] [address] Care Team Providers Care Assessor Name Role Phone Kelby Arnold MD Primary Care Provider [phone] Allergies Active Allergy Reactions Criticality Noted Date [...] age to complete this topic Care Teams Assessor Relationship Specialty Start Date End Date Kelby Arnold MD [address] [place] [phone] PCP - General Internal Medicine 05/10/17
--- OUTSIDE RECORDS SUMMARY | 2024-10-09 10:38 | XMS_ITS | Clinical Summary ---
Author Organization [facility] Address [address] [address] Care Team Providers Care Clinical Services Manager Name Role Phone Kelby Arnold MD Primary Care Provider [phone] Allergies Active Allergy Reactions Criticality Noted Date Comments Cyclobenzaprine Other (see comments) 10/05/2021 Diazepam 10/05/2021 Other reaction(s): hyper Morphine 05/18/2017 Medications atenolol (TENORMIN) 100 MG tablet Take 1 tablet by mouth 2 (two) times a day Active Cholecalciferol 50 MCG (1999 UT) capsule Take 1 capsule by mouth 1 (one) time each day 11/20/2012 Active LORazepam (ATIVAN) 1 MG tablet Take 1 mg by mouth every 6 (six) hours if needed Active NIFEdipine XL (PROCARDIA XL) 30 MG 24 hr tablet Take 1 tablet by mouth 1 (one) time each day Active spironolactone (ALDACTONE) 25 MG tablet Take 1 tablet by mouth every other day 04/19/2013 Active valsartan (DIOVAN) 320 MG tablet Take 320 mg by mouth 1 (one) time each day 02/07/2021 Active rosuvastatin (CRESTOR) 10 MG tablet Take 10 mg by mouth 1 (one) time each day Active Calcium Carbonate (CALCIUM 600 PO) Take 1 tablet by mouth 1 (one) time each day Active Famotidine (PEPCID AC PO) Take 1 tablet by mouth 1 (one) time each day Active lamoTRIgine (LaMICtal) 100 MG tablet Take 100 mg by mouth 1 (one) time each day 01/08/2006 Active cyanocobalamin 500 MCG tablet Take 100 mcg by mouth every other day 10/22/2016 Active Active Problems Problem Noted Date Diagnosed Date Benign essential hypertension 01/05/2021 Stage 3b chronic kidney disease 01/05/2021 Hypertensive renal disease 01/05/2021 Hyperkalemia 01/05/2021 Hypokalemia 01/05/2021 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 Family History Medical History Relation Comments Cancer Father Diabetes Mother Heart disease Mother Hypertension Mother Kidney disease Mother Stroke Mother Cancer Sibling Relation Status Comments Father Mother Sibling Social History Tobacco Use Types Packs/Day Years Used Date Smoking Tobacco: Former Smokeless Tobacco: Never Tobacco Cessation:Counseling Given: No Alcohol Use Standard Drinks/Week Comments Yes 0 (1 standard drink = 0.6 oz pure alcohol) Alcoholic Drinks/day: Occasional social drink Sex and Gender Information Value Date Recorded Sex Assigned at Not on file Legal Sex Male 5:12 PM EST Gender Identity Not on file Sexual Orientation Not on file Last Filed Vital Signs Vital Sign Reading Time Taken Comments Blood Pressure 122/72 05/14/2024 4:30 PM EDT Pulse 74 05/14/2024 4:30 PM EDT Temperature - - Respiratory Rate - - Oxygen Saturation 97% 10/05/2021 2:49 PM EST Inhaled Oxygen Concentration - - Weight 83.4 kg (183 lb 12.8 oz) 05/14/2024 4:30 PM EDT Height 165.1 cm (5' 5 ) 10/05/2021 2:49 PM EST Body Mass Index 30.59 10/05/2021 2:49 PM EST Plan of Treatment Upcoming Encounters Date Type Department Care Team (Late st Contact Info) Description 05/13/2025 1:30 PM EDT Office Visit [facility] [address] [phone] Vladimir Rankin MD [address] [phone] Health Maintenance Due Date Last Done Comments Pneumococcal Vaccine: 65+ Ye ars (1 of 2 - PCV) 1951 Influenza Vaccine (#1) 2024 Hepatitis B Vaccine Aged Out No longe r eligible based on patient's age to complete this topic Insurance [facility] MEDICARE [facility] MEDICARE Care Teams Clinical Services Manager Relationship Specialty Start Date End Date Kelby Arnold MD [address] PCP - General 09/08/20
--- OUTSIDE RECORDS SUMMARY | 2024-10-09 10:38 | XMS_ITS | Clinical Summary ---
Author Organization [facility] [address] [facility] Address [address] [place] [address] Phone Care Team Providers Care Director Of Event Sales Name Role Phone Kelby Arnold MD Primary Care Provider [phone] Allergies Active Allergy Reactions Criticality Noted Date Comments Morphine 05/18/2017 Medications atenoloL (TENORMIN) 100 mg tablet 1 tab bid Active irbesartan (AVAPRO) 300 mg tablet 1 TABLET DAILY Activ e raNITIdine (ZANTAC) 150 mg tablet 1 po bid Active zolpidem (AMBIEN) 10 mg tablet 1 TABLET AT BEDTIME NEEDED Active aspirin 81 mg EC tablet 1 TABLET DAILY Activ e hydrALAZINE (APRESOLINE) 10 mg tablet 1 tab bid Active terazosin (HYTRIN) 10 mg capsule 1 CAPSULE DAILY Active lamoTRIgine (LaMICtal) 200 mg tablet 1 TABLET TWICE DAILY Active escitalopram (LEXAPRO) 10 mg tablet 1 tab daily Active amLODIPine (NORVASC) 10 mg tablet 1 TABLET DAILY Activ e potassium chloride (KLOR-CON M20) 20 mEq CR tablet 1 TABLET TWICE DAILY Tablet may be swallowed whole (do not crush/chew/suc k on) OR broken in half and each half swallowed separately OR dissolved (whole tablet) in ~4 ounces of water (allow ~2 minutes to dissolve, stir well and administer immediately). Active Clenpiq 10 mg-3.5 gram- 12 gram/175 mL solutionIndicat ions:Adenomatou s polyp of colon, unspecified part of colon TAKE 175 ML BY MOUTH 2 (TWO) TIMES A DAY. 350 mL 09/26/19 25 Active sod picosulf-mag ox-citric ac (Clenpiq) 10 mg-3.5 gram- 12 gram/175 mL solutionIndicat ions:Adenomatou s polyp of colon, unspecified part of colon Take 175 mL by mouth 2 (two) times a day. 350 mL 09/26/19 25 025 Discontinued Clenpiq 10 mg-3.5 gram- 12 gram/175 mL solutionIndicat ions:Adenomatou s polyp of colon, unspecified part of colon TAKE 175 ML BY MOUTH 2 (TWO) TIMES A DAY. 350 mL 09/26/19 25 025 Discontinued Clenpiq 10 mg-3.5 gram- 12 gram/175 mL solutionIndicat ions:Adenomatou s polyp of colon, unspecified part of colon TAKE 175 ML BY MOUTH 2 (TWO) TIMES A DAY. 350 mL 09/26/19 25 025 Discontinued Encounters Date Type Department Care Team Description 09/26/2024 9:20 AM EST Office Visit Gastroenterology - [address] [phone] Marlena Mayer, LUCY Adenomatous polyp of colon, unspecified part of colon (Primary Dx); Inflammatory bowel diseases (IBD) 09/26/2024 Telephone Gastroenterology - [address] [phone] Eladio Deng MD from Last 3 Months Social History Tobacco Use Types Packs/Day Years Used Date Smoking Tobacco: Never Assessed Sex and Gender Information Value Date Recorded Sex Assigned at Not on file Legal Sex Male 2:16 PM EST Gender Identity Not on file Sexual Orientation Not on file Last Filed Vital Signs Vital Sign Reading Time Taken Comments Blood Pressure - - Pulse - - Temperature - - Respiratory Rate - - Oxygen Saturation - - Inhaled Oxygen Concentration - - Weight 84.8 kg (187 lb) 09/26/2024 9:10 AM EST Height 167.6 cm (5' 6 ) 09/26/2024 9:10 AM EST Body Mass Index 30.18 09/26/2024 9:10 AM EST Plan of Treatment Upcoming Encounters Date Type Department Care Team (Late st Contact Info) Description 11/16/2024 2:00 PM EDT Hospital Encounter [facility] Endoscopy [address] [place] [phone] Eladio Deng MD [address] [address] Health Maintenance Due Date Last Done Comments Zoster Vaccines (1 of 2) 1964 DTaP,Tdap,and Td Vaccines (2 - Td or Tdap) 04/20/2015 03/23/2015 RSV Immunization Patients 60+ Years Old (1 - 1-dose 75+ series) 2019 Cholesterol Screening (Lipid Panel) 09/04/2024 Depression Screening 09/04/2024 Falls Risk Assessment 09/04/2024 Medicare Annual Wellness Visit 09/04/2024 Social Influencers of Health Screening 09/04/2024 Hypertension/CHF/CAD Annual BMP Blood Test 09/26/2024 Pneumococcal Vaccine: 50+ Years Completed 07/07/2023 COVID-19 Vaccine Completed 05/15/2024, 09/2021, 07/08/2021, Additional history exists Influenza Vaccine Completed 05/15/2024, , 05/22/2022, Additional history exists HIB Vaccines Aged Out No longer eligi [...] patient's age to complete this topic Meningococcal B Vacine Aged Out No lo nger eligible based on patient's age to complete this topic RSV Immunization Patients Under 20 months Aged Out No longer eligible based on patient's age to complete this topic Varicella Vaccines Aged Out No longer eligible based on patient's age to complete this topic Insurance MEDICARE [facility] Care Teams Director Of Event Sales Relationship Specialty Start Date End Date Kelby Arnold MD [address] [place] [phone] PCP - General Internal Medicine 05/10/17
--- OUTSIDE RECORDS SUMMARY | 2024-10-09 10:38 | XMS_ITS | Encounter Summary ---
Author Organization [facility] Address [address] [place] [phone] Care Team Providers Care Property Management Coordinator Name Role Phone Kelby Arnold MD Primary Care Provider [phone] Encounter Details Date Type Department Care Team (Late Contact Info) Description 09/26/2024 Telephone Gastroenterology - [address] [phone] Eladio Deng MD [address] [address] Social History Tobacco Use Types Packs/Day Years Used Date Smoking Tobacco: Never Assessed Sex and Gender Information Value Date Recorded Sex Assigned at Not on file Legal Sex Male 2:16 PM EST Gender Identity Not on file Sexual Orientation Not on file documented as of this encounter Ordered Prescriptions Prescription Sig Dispense Quantity Refills Last Filled Start Date End Date sod picosulf-mag ox-citric ac (Clenpiq) 10 mg-3.5 gram- 12 gram/175 mL solutionIndications :Adenomatous polyp of colon, unspecified part of colon Take 175 mL by mouth 2 (two) times a day. 350 mL 09/26/2024 09/26/2024 documented in this encounter Progress Notes * Suzi Silver MA - 09/26/2024 10:11 AM EST Colon prep documented in this encounter Plan of Treatment Upcoming Encounters Date Type Department Care Team (Late Contact Info) Description 11/16/2024 2:00 PM EDT Hospital Encounter [facility] Endoscopy [address] [place] [phone] Eladio Deng MD [address] [address] documented as of this encounter Visit Diagnoses Diagnosis Adenomatous polyp of colon, unspecified part of colon- Primary documented in this encounter Care Teams Property Management Coordinator Relationship Specialty Start Date End Date Kelby Arnold MD [address] [place] [phone] PCP - General Internal Medicine 05/10/17 documented as of this encounter
--- OUTSIDE RECORDS SUMMARY | 2024-10-09 10:38 | XMS_ITS | Encounter Summary ---
Author Organization [facility] Address [address] [place] [phone] Care Team Providers Care Wire Spooler Name Role Phone Kelby Arnold MD Primary Care Provider [phone] Encounter Details Date Type Department Care Team (Late st Contact Info) Description 09/26/2024 9:20 AM EST Office Visit Gastroenterology - [address] [place] [address] Marlena Mayer NP [address] [place] [address] Adenomatous polyp of colon, unspecified part of colon (Primary Dx); Inflammatory bowel diseases (IBD) Social History Tobacco Use Types Packs/Day Years Used Date Smoking Tobacco: Never Assessed Sex and Gender Information Value Date Recorded Sex Assigned at Not on file Legal Sex Male 2:16 PM EST Gender Identity Not on file Sexual Orientation Not on file documented as of this encounter Last Filed Vital Signs Vital Sign Reading Time Taken Comments Blood Pressure - - Pulse - - Temperature - - Respiratory Rate - - Oxygen Saturation - - Inhaled Oxygen Concentration - - Weight 84.8 kg (187 lb) 09/26/2024 9:10 AM EST Height 167.6 cm (5' 6 ) 09/26/2024 9:10 AM EST Body Mass Index 30.18 09/26/2024 9:10 AM EST documented in this encounter Progress Notes * Marlena Mayer NP - 09/26/2024 9:20 AM EST CHIEF COMPLAINT: History of colon polyps DATE OF LAST ENDOSCOPIC PROCEDURES: 10/2020 Colonoscopy TA X2 2 yr recall HPI: Vik Mcdermott is a 79 y.o. old male who was originally referred to us by Kelby Arnold MD nowpresents to the gastroenterology department today to schedule a repeat colonoscopy. Mr. Mcdermott is accompanied by his to help with the history. She tells me they had several deaths in the family last year, including their 45yo son, and that is why they have not come to schedule the colonoscopy, but they want to do that now. Mr. Mcdermott had no GI complaints. He occasionally gets constipated and his will give him Senna which works well. He denies any rectal bleeding or abdominal pain. His weight is stable. He is now 79 and we discussed whether he wants to continue surveillance colonoscopies and he states that he does want to proceed. ROS: GENERAL: No malaise, significant weight loss or fever HEENT: No changes in hearing or vision or swallowing problems RESPIRATORY: No cough, wheezing or shortness of breath CARDIOVASCULAR: No chest pain, leg swelling or palpitations GI: See H&P The remainder of the review of systems is reviewed and negative. PAST MEDICAL HISTORY: Prostate CA XRT only HTN Hyperlipidemis GERD PAST SURGICAL HISTORY: None SOCIAL HISTORY: No tobacco 1 wine with lunch daily FAMILY HISTORY: No CRC/popyps ACTIVE MEDICATIONS: Amlodipine 10mg QD Atenolol 100mg Melatonin qhs Irbesartan 300mg Nifedipine 30mg Lamotrigine 100mg QD Pepcid AC QD Crestor 10mg Spirnolactone 25mg QOD ALLERGIES: MSO4 agitation PHYSICAL EXAM: Visit Vitals Ht 1.676 m (66 ) Wt 84.8 kg (187 lb) BMI 30.18 kg/m?? BSA 1.94 m?? APPEARANCE: Alert and in no acute distress EYES: PERRLA, conjunctiva and sclera normal. HEART: RRR with normal S1 and S2, positive murmur LUNG: clear to auscultation ABDOMEN: soft obese nonender NEURO: Awake, alert and oriented x 3 Assessment & Plan Adenomatous polyp of colon, unspecified part of colon Colonoscopy Discussed with patient indications for procedure as well as risks of bleeding, infection, risk of perforation and reaction to anesthesia. Patient is aware of risk of missed lesions. Indications including screening for potential pre- malignant lesions and attempting to remove them. General: Patient aware needs a ride home Nor to have liquids for at least three hours before procedure. Patient understands and would like to proceed OCCASIONAL CONSTIPATION: Try Metamucil daily I would like to thank Kelby rAnold MD for the opportunity to partake in the patient's care. Board Certified Gastroenterology [facility] W [phone] [address] [email or web address] Marlena Mayer NP documented in this encounter Plan of Treatment Upcoming Encounters Date Type Department Care Team (Late st Contact Info) Description 11/16/2024 2:00 PM EDT Hospital Encounter [facility] Endoscopy [address] [place] [phone] Eladio Deng MD [address] [address] documented as of this encounter Visit Diagnoses Diagnosis Adenomatous polyp of colon, unspecified part of colon- Primary Inflammatory bowel diseases (IBD) documented in this encounter Care Teams Wire Spooler Relationship Specialty Start Date End Date Kelby Arnold MD [address] [place] [phone] PCP - General Internal Medicine 05/10/17 documented as of this encounter
== END 2024-10-09 10:20 | disposition home or self-care (01) ==
PROVIDERS: Visit Provider Physician Assistant
DX: M17.12 Unilateral primary osteoarthritis, left knee (principal)
CPT/HCPCS: 20610; 99213

== ENCOUNTER 2025-02-21 10:18 | Outpatient (REF) | payer MEDICARE, SELFPAY ==
--- NOTE | ~2025-02-21 | XR_ITS ---
EXAMINATION: XR SHOULDER 2 OR MORE VIEWS LEFT HISTORY: M19.012 - Primary osteoarthritis, left shoulder COMPARISON: There are no prior studies available for comparison. FINDINGS: Three views of the left shoulder are submitted. Osseous mineralization is normal. There is no fracture or dislocation. The glenohumeral joint is maintained. There is moderate osteoarthritis of the AC joint with joint space narrowing and osteophyte formation. Moderate osteoarthritis of the AC joint. XR/XR shoulder LT min 2V IMPRESSION: Electronically signed by: Omgea Vaz MD 02/21/2025 11:34 AM EDT
== END 2025-02-21 10:19 | disposition home or self-care (01) ==
LOC: HO.HMGCX 10:18
PROVIDERS: PCP Internal Medicine; Visit Provider Nurse Practitioner Family
DX: M19.012 Primary osteoarthritis, left shoulder (principal)
CPT/HCPCS: 73030; 99212

== ENCOUNTER 2025-02-21 10:18 | Outpatient (AMB) | payer MEDICARE, SELFPAY ==
--- NOTE | 2025-02-21 10:30 | MHC.OFFWIV ---
Intake Vital Signs 02/21/25 10:33 Height 5 ft 5 in Weight 184 lb BMI 30.6 BP 112/50 L Blood Pressure Location Lt brachial Position Sitting Pulse 81 Pulse Source Pulse Oximeter Temp 98.1 F Temp Source Oral Pulse Oximetry (%) 96 Intake Visit Reasons: EP severe shoulder pain on LT side Patient Tobacco Use Status: Never used Tobacco Allergies morphine Allergy (Mild, Verified 02/21/25 10:33) Hallucinations Do you need a note to return to daycare/school/sports/work: No HPI HPI Comments History of Present Illness Details 79 y/o Male patient who presents to the walk clinic with c/o Left shoulder pain for few day now. Denies injury or trauma to the joint. He does have OA on Both Shoulders. He is currently seeing Orthopedics and he did receive Cortisone injection on the right shoulder 09/2024 with good relief. His has been appying Lidocaine Jelly and giving him Acetaminophen with good relief. [facility] Medical History (Updated 02/21/25 @ 11:04 by Nicole Costello NP) Osteoarthritis of left shoulder Social History (Updated 10/09/24 @ 09:53 by Will Carias) Patient Tobacco Use Status: Never used Tobacco Current occupational status: disabled Review of Systems Const All systems reviewed & are unremarkable except as noted in HPI and below Physical Exam Vital Signs: Last Vital Signs Temp 98.1 F 02/21/25 10:33 Pulse 81 02/21/25 10:33 BP 112/50 L 02/21/25 10:33 Pulse Ox 96 02/21/25 10:33 BMI result Body Mass Index 30.6 Back/Spine/Pelvis Cervical Spine: cervical muscular tenderness, pain with cervical ROM, cervical spasm and Cervical spine tenderness Extrem Left upper extremity: normal to inspection, full ROM, normal capillary refill and shoulder/upper arm Details: inspection abnormal, tenderness Location: of the scapula and over the deltoid bursa and normal ROM; no swelling, no ecchymosis and no crepitus Psych Speech and movement: Normal speech and movement present Assessment & Plan Assessment & Plan (1) Osteoarthritis of left shoulder: Code(s): M19.012 - Primary osteoarthritis, left shoulder Qualifiers: Osteoarthritis type: primary Qualified Code(s): M19.012 - Primary osteoarthritis, left shoulder Plan: Ordered Xray shoulder Placed a new referral to Orthopedics for left shoulder. Placed another PT referral for left shoulder. NSAIDs and Acetaminophen for pain relief. Orders: Orders PT Evaluation and Treatment Today M19.012 - Primary osteoarthritis, left shoulder XR shoulder LT min 2V Today M19.012 - Primary osteoarthritis, left shoulder Referrals Orthopedics Referral M19.012 - Primary osteoarthritis, left shoulder Coding Level of Care Code Est Pt Level 4 (53672) Diagnoses Primary osteoarthritis of left shoulder M19.012 Osteoarthritis type: primary Time Spent (min) 20
[2025-02-21 10:33] VITALS: BP 112/50; PULSE 81; TEMP 36.7; O2SAT 96; BMI 30.6
--- OUTSIDE RECORDS SUMMARY | 2025-02-21 11:55 | XMS_ITS | Clinical Summary ---
Author Organization [facility] Facility Address [address] [address] Care Team Providers Care Legal Nurse Consultant Name Role Phone Kelby Arnold MD Primary Care Provider [phone] Allergies Active Allergy Reactions Criticality Noted Date [...] Visit [facility] [address] [phone] Vladimir Rankin MD [address] [id number] Health Maintenance Due Date Last Done Comments Pneumococcal Vaccine: 50+ Ye ars (1 of 2 - PCV) 1964 Influenza Vaccine (Season Ended) 2025 Hepatitis B Vaccine Aged Out No longe r eligible based on patient's age to complete this topic Insurance [facility] Medicare [facility] Medicare Care Teams Legal Nurse Consultant Relationship Specialty Start Date End Date Kelby Arnold MD [address] PCP - General 09/08/20
== END 2025-02-21 11:20 | disposition home or self-care (01) ==
PROVIDERS: PCP Internal Medicine; Visit Provider Nurse Practitioner Family
DX: M19.012 Primary osteoarthritis, left shoulder (principal)

== ENCOUNTER → 2025-02-21 11:16 | Outpatient (BNV) | payer MEDICARE, SELFPAY | PROVIDERS: PCP Internal Medicine; Visit Provider Radiology Diagnostic Radiology | DX: M19.012 Primary osteoarthritis, left shoulder (principal) | CPT/HCPCS: 73030 ==

== ENCOUNTER 2025-06-13 10:35 | Outpatient (AMB) | payer MEDICARE, SELFPAY ==
--- NOTE | 2025-06-13 10:39 | MHC.OFFVIS ---
Vital Signs 06/13/25 10:46 Height 5 ft 5 in Weight 184 lb BMI 30.6 Intake Visit Reasons: New Prob - Left shoulder pain Intake Note: Vik is a 80 year old right hand dominant male who presents today for a evaluation of his left shoulder pain. Patient reports ongoing pain for about 3 - 4 months. He states that his pain is on the anterior and posterior aspect of the shoulder and radiates up to his neck. Patient notices that his pain is worse when he is laying down, lifting his arm and picking heavy objects. Has tried patches, lidocaine topical cream and heat with mild relief. Allergies morphine Allergy (Mild, Verified 06/13/25 10:43) Hallucinations HPI HPI New Prob - Left shoulder pain: Details: Mr. Mcdermott is an 80-year-old right hand dominant male who presents to the office today for evaluation of left shoulder pain. Patient reports ongoing pain for about 3 - 4 months. He denies any injury or trauma. He states that his pain is on the anterior and posterior aspect of the shoulder and radiates down to his elbow. Patient notices that his pain is worse when he is laying down, lifting his arm and picking heavy objects. Has tried patches, lidocaine topical cream and heat with mild relief. [facility] Medical History (Updated 02/21/25 @ 11:04 by Nicole Costello NP) Osteoarthritis of left shoulder Social History Patient Tobacco Use Status: Never used Tobacco Current occupational status: disabled Review of Systems Const All systems reviewed & are unremarkable except as noted in HPI and below Physical Exam Vital Signs: BMI result Body Mass Index 30.6 Const General: cooperative, healthy appearing and no acute distress Resp Effort & Inspection: normal respiratory effort and able to speak in complete sentences Extrem Other: Right shoulder lacking roughly 25 degrees of forward flexion and abduction. Able to reach T12. Pain with cross-body reach. 4-5 strength with empty can. NVI. Psych Appearance: grossly normal Mental Status: mental status grossly normal Attitude: cooperative Office Procedures AMB Joint Injection/Aspiration Joint Injection/Aspiration Primary Site: right shoulder Prep: site was prepped using aseptic technique, ethochloride spray was applied and injection warnings given Injected: 40 mg of, with 3 mL of, 1% plain lidocaine, 0.25% bupivacaine, in the subcromial space and decadron Approach Used: posterolateral Procedure: The patient tolerated the procedure well, but had some pain with the injection and there was some relief with the local anesthesia Coding 98216 - Large joint Procedure code (CPT) selection complete Assessment & Plan Assessment & Plan (1) Painful arc syndrome of right shoulder: Code(s): M75.101 - Unspecified rotator cuff tear or rupture of right shoulder, not specified as traumatic Category: Medical (2) Osteoarthritis of right shoulder: Code(s): M19.011 - Primary osteoarthritis, right shoulder Category: Medical Qualifiers: Osteoarthritis type: unspecified Qualified Code(s): M19.011 - Primary osteoarthritis, right shoulder Plan Mr. Mcdermott is an 80-year-old right hand dominant male who presents to the office today for evaluation of left shoulder pain. Patient reports ongoing pain for about 3 - 4 months. He denies any injury or trauma. He states that his pain is on the anterior and posterior aspect of the shoulder and radiates down to his elbow. Patient notices that his pain is worse when he is laying down, lifting his arm and picking heavy objects. Has tried patches, lidocaine topical cream and heat with mild relief. The patient was offered a cortisone injection in the right shoulder. The patient was explained the risks, benefits, and alternatives to receiving this injection. After receiving consent for the injection, the patient had the procedure done while in the office today. The patient tolerated the procedure well with no complications. Follow up will be PRN, sooner if needed. Coding Level of Care Code Est Pt Level 3 (63231) Diagnoses Painful arc syndrome of right shoulder M75.101 Osteoarthritis of right shoulder, unspecified osteoarthritis type M19.011 Osteoarthritis type: unspecified CPT Codes Coding - Large joint: 24299 - Large joint ([id number])
[2025-06-13 10:46] VITALS: BMI 30.6
--- OUTSIDE RECORDS SUMMARY | 2025-06-13 13:09 | XMS_ITS | Clinical Summary ---
Author Organization [facility] Address [address] [place] [address] Care Team Providers Care Metabolic Specialist Name Role Phone Kelby Arnold MD Primary Care Provider [phone] Allergies Active Allergy Reactions Criticality Noted Date [...] 56 05/29/2018 12:57 PM EDT Temperature 36.4 C (97.5 F) 05/29/2018 12:57 PM EDT Respiratory Rate - - Oxygen Saturation - [...] 1-dose 75+ series) 2019 Influenza Vaccine (#1) 2025 Hepatitis B Vaccines Aged Out No long er eligible based on patient's age to complete this topic RSV Ped < 20 months Aged Out No longe r eligible based on patient's age to complete this topic Care Teams Metabolic Specialist Relationship Specialty Start Date End Date Kelby Arnold MD [address] [place] [phone] PCP - General Internal Medicine 05/10/17
--- OUTSIDE RECORDS SUMMARY | 2025-06-13 13:09 | XMS_ITS | Clinical Summary ---
Author Organization [facility] [address] [facility] Address [address] [place] [address] Phone Care Team Providers Care Truant Officer Name Role Phone Kelby Arnold MD Primary Care Provider [phone] Allergies Active Allergy Reactions Criticality Noted Date [...] (HYTRIN) 10 mg capsule 1 CAPSULE DAILY Acti ve lamoTRIgine (LaMICtal) 200 mg tablet 1 TABLET [...] Clenpiq 10 mg-3.5 gram- 12 gram/175 mL solutionIndicati ons:Adenomatous polyp of colon, unspecified part of colon TAKE 175 ML BY MOUTH 2 (TWO) TIMES A DAY. 350 mL 5 Active NIFEdipine XL (PROCARDIA XL) 30 mg 24 hr tablet Take 1 tablet (30 mg total) by mouth 1 (one) time each day. Active valsartan (DIOVAN) 320 mg tablet Take 1 tablet (320 mg total) by mouth 1 (one) time each day. for 90 days 5 Active spironolactone (ALDACTONE) 25 mg tablet 1 tablet (25 mg total). Active celecoxib (CeleBREX) 200 mg capsule Take 1 capsule (200 mg total) by mouth 2 (two) times a day. for 30 days 5 Active rosuvastatin (CRESTOR) 10 mg tablet Take 1 tablet (10 mg total) by mouth 1 (one) time each day. Active cyanocobalamin (VITAMIN B-12) 500 mcg tablet Take 2 tablets (1,000 mcg total) by mouth 1 (one) time each day. 7 Active cholecalciferol (VITAMIN D-3) 25 mcg (1,000 unit) tablet Take 1 tablet (1,000 Units total) by mouth 1 (one) time each day. Active latanoprost (XALATAN) 0.005 % ophthalmic solution Administer 1 drop into both eyes at bedtime. 5 Active famotidine (PEPCID) 10 mg tablet Take 1 tablet (10 mg total) by mouth 1 (one) time each day. Active Surgical History Surgery Date Site/Laterality Comments BRAIN SURGERY COLONOSCOPY Medical History Medical History Date Comments Leukemia ([facility] V24, [facility] V28) Prostate cancer ([facility] V24, [facility] V28) radiation Brain aneurysm [facility]izure ([facility] V24, [facility] V28) Hypertension Colon polyp Social History Tobacco Use Types Packs/Day Years Used Date Smoking Tobacco: Former Cigarettes Smokeless Tobacco: Never Tobacco Cessation:Counseling Given: Not Answered Alcohol Use Standard Drinks/Week Comments Not Currently 0 (1 standard drink = 0.6 oz pur e alcohol) Interpersonal Safety Answer Date Record ed Physical Abuse Unrecognized value 11/16/2024 Verbal Abuse Unrecognized value 11/16/2024 Sex and Gender Information Value Date Recorded Sex Assigned at Male 11/16/2024 12:51 PM EDT Legal Sex Male 2:16 PM EST Gender Identity Male 11/16/2024 12:51 PM EDT Sexual Orientation Straight 11/16/2024 12 :51 PM EDT Obstetrics History Last Filed Vital Signs Vital Sign Reading Time Taken Comments Blood Pressure 117/77 11/16/2024 3:00 PM EDT Pulse 76 11/16/2024 3:00 PM EDT Temperature 36.7 C (98.1 F) 11/16/2024 2:40 PM EDT Respiratory Rate 18 11/16/2024 3:00 PM EDT Oxygen Saturation 98% 11/16/2024 3:00 PM EDT Inhaled Oxygen Concentration - - Weight 83.9 kg (185 lb) 11/16/2024 1:53 PM EDT Height 167.6 cm (5' 6 ) 11/16/2024 1:53 PM EDT Body Mass Index 29.86 11/16/2024 1:53 PM EDT Plan of Treatment Health Maintenance Due Date Last Done Comments Zoster Vaccines (1 of 2) 1964 RSV Immunization Adult Patients (1 - 1-dose 75+ series) 2019 Depression Screening 08/29/2024 Cholesterol Screening (Lipid Panel) 09/04/2024 Medicare Annual Wellness Visit 09/04/2024 Social Influencers of Health Screening 09/04/2024 Hypertension/CHF/CAD Annual BMP Blood Test 09/26/2024 DTaP,Tdap,and Td Vaccines (2 - Td or Tdap) 03/23/2025 03/23/2015 COVID-19 Vaccine (6 - Moderna risk season) 2025 05/15/2024, 07/30/2022, 07/08/2021, Additional history exists Influenza Vaccine (#1) 2025 , 06/07/2023, 05/22/2022, Additional history exists Falls Risk Assessment 11/16/2025 11/16/2024 Pneumococcal Vaccine: 50+ Years Completed 07/07/2023 HIB Vaccines Aged Out No longer eligi [...] age to complete this topic Meningococcal B Vaccine Aged Out No l onger eligible based on patient's age to complete this topic RSV Immunization Patients Under 20 months Aged Out No longer eligible based on patient's age to complete this topic Varicella Vaccines Aged Out No longer eligible based on patient's age to complete this topic Insurance [employer] Care Teams Truant Officer Relationship Specialty Start Date End Date Kelby Arnold MD [address] [place] [phone] PCP - General Internal Medicine 05/10/17
== END 2025-06-13 11:25 | disposition home or self-care (01) ==
LOC: HO.HOS 10:36
PROVIDERS: PCP Internal Medicine; Visit Provider Physician Assistant
DX: M75.101 Unspecified rotator cuff tear or rupture of right shoulder, not specified as traumatic (principal); M19.011 Primary osteoarthritis, right shoulder
CPT/HCPCS: 20610; 99213

== ENCOUNTER → 2025-06-13 10:35 | Outpatient (BNVA) | payer MEDICARE, SELFPAY | PROVIDERS: PCP Internal Medicine; Visit Provider Physician Assistant | DX: M19.011 Primary osteoarthritis, right shoulder (principal) | CPT/HCPCS: 20610; 99212; J0665; J1100; J2003 ==